=== PATIENT | male | born 1975 | race Caucasian/White ===

== ENCOUNTER → 2020-05-17 08:42 | Outpatient (CLI) | payer MEDICARE, SELFPAY ==
[2020-05-17 09:31] LABS: Add Manual Diff / Slide Review NO; Basophils Absolute Auto 0 /uL (0-100); Basophils Percent Auto 0.4 % (0-2); Eosinophils Absolute Auto 200 /uL (0-450); Eosinophils Percent Auto 2.7 % (2-4); Hematocrit 43.9 % (41-53); Hemoglobin 14.5 g/dL (13.5-17.5); Lymphocytes Absolute Auto 1200 /uL (1100-4500); Lymphocytes Percent Auto 19.8 % (25-40); Mean Corpuscular Hemoglobin 30.5 PG (26-34); Mean Corpuscular Volume 92.3 fL (80-100); Monocytes Absolute Auto 500 /uL (0-900); Neutrophils Absolute Auto 4300 /uL (1500-7000); Neutrophils Percent Auto 69.1 % (50-75); Platelet Count 167 X10^3/uL (150-400); Red Blood Cell Count 4.76 X10^6/uL (4.5-5.9); Red Cell Distribution Width 12.8 % (11.6-14.8); White Blood Cell Count 6.2 X10^3/uL (4.5-11.0)
[2020-05-17 09:57] LABS: Alanine Aminotransferase 59 IU/L (<50); Albumin 4.1 g/dL (3.5-5.0); Albumin Globulin Ratio 1.7 (1.0-2.8); Alkaline Phosphatase 103 U/L (38-126); Aspartate Aminotransferase 35 IU/L (17-59); BUN Creatinine Ratio 10.1 (6-22); Bilirubin Total 0.5 mg/dL (0.2-1.3); Blood Urea Nitrogen 10 mg/dL (9-20); Calcium 9.2 mg/dL (8.4-10.2); Carbon Dioxide 30 mmol/L (22-32); Chloride 105 mmol/L (98-107); Cholesterol 145 mg/dL (140-199); Estimated Glomerular Filt Rate > 60.0 mL/min (>60); Globulin 2.4 g/dL (1.7-4.1); Glucose 99 mg/dL (70-100); HDL Cholesterol 28 mg/dL (40-60); HEMOLYSIS < 15 (0-50); LDL Cholesterol Calculated 92 mg/dL (<100); Potassium 4.4 mmol/L (3.4-5.1); Sodium 139 mmol/L (137-145); Total Protein 6.5 g/dL (6.3-8.2); Triglycerides 127 mg/dL (35-150)
[2020-05-17 10:25] LABS: TSH w/ Reflex to FT4 1.56 uIU/mL (0.47-4.68)
== END ==
PROVIDERS: PCP Family Medicine; Referring Provider Family Medicine; Visit Provider Family Medicine
DX: E03.9 Hypothyroidism, unspecified (principal); E78.5 Hyperlipidemia, unspecified
CPT/HCPCS: 36415; 80053; 80061; 84443; 85025

== ENCOUNTER → 2020-12-19 09:26 | Outpatient (CLI) | payer MEDICARE, SELFPAY ==
[2020-12-19] MEDS: COVID-19 VACC, Ad26(JANSSEN)/PF 0.5 ML IM (09:32)
== END ==
PROVIDERS: PCP Family Medicine; Visit Provider Internal Medicine
DX: Z23 Encounter for immunization (principal)
CPT/HCPCS: 0031A; 91303

== ENCOUNTER → 2021-10-30 13:38 | Outpatient (CLI) | payer OTHER, SELFPAY ==
[2021-10-30 15:35] LABS: Thyroid Stimulating Hormone 2.12 uIU/mL (0.47-4.68)
== END ==
PROVIDERS: PCP Family Medicine; Referring Provider Family Medicine; Visit Provider Family Medicine
DX: E03.9 Hypothyroidism, unspecified (principal)
CPT/HCPCS: 36415; 84443

== ENCOUNTER → 2022-06-10 09:30 | Outpatient (CLI) | payer OTHER, SELFPAY ==
[2022-06-10 11:56] LABS: Add Manual Diff / Slide Review NO; Basophils Absolute Auto 0 /uL (0-100); Basophils Percent Auto 0.4 % (0-2); Eosinophils Absolute Auto 100 /uL (0-450); Hematocrit 43.2 % (41-53); Hemoglobin 14.5 g/dL (13.5-17.5); Lymphocytes Absolute Auto 1200 /uL (1100-4500); Lymphocytes Percent Auto 19.6 % (25-40); Mean Corpuscular HGB Conc 33.6 % (30-36); Mean Corpuscular Hemoglobin 30.7 PG (26-34); Mean Corpuscular Volume 91.6 fL (80-100); Monocytes Absolute Auto 500 /uL (0-900); Monocytes Percent Auto 8.5 % (3-14); Neutrophils Absolute Auto 4200 /uL (1500-7000); Neutrophils Percent Auto 69.5 % (50-75); Platelet Count 169 X10^3/uL (150-400); Red Blood Cell Count 4.72 X10^6/uL (4.5-5.9); Red Cell Distribution Width 12.8 % (11.6-14.8); White Blood Cell Count 6.1 X10^3/uL (4.5-11.0)
[2022-06-10 12:14] LABS: Alanine Aminotransferase 60 IU/L (<50); Albumin 4.1 g/dL (3.5-5.0); Albumin Globulin Ratio 1.8 (1.0-2.8); Alkaline Phosphatase 90 U/L (38-126); Aspartate Aminotransferase 33 IU/L (17-59); BUN Creatinine Ratio 9.5 (6-22); Bilirubin Total 0.5 mg/dL (0.2-1.3); Blood Urea Nitrogen 9 mg/dL (9-20); Carbon Dioxide 31 mmol/L (22-32); Chloride 105 mmol/L (98-107); Cholesterol 136 mg/dL (140-199); Estimated Glomerular Filt Rate > 60 mL/min (>60); Globulin 2.3 g/dL (1.7-4.1); Glucose 94 mg/dL (70-100); HDL Cholesterol 26 mg/dL (40-60); HEMOLYSIS < 15 (0-50); LDL Cholesterol Calculated 90 mg/dL (<100); Potassium 4.5 mmol/L (3.4-5.1); Sodium 142 mmol/L (137-145); Total Protein 6.4 g/dL (6.3-8.2); Triglycerides 98 mg/dL (35-150)
[2022-06-10 12:45] LABS: Thyroid Stimulating Hormone 1.33 uIU/mL (0.47-4.68)
== END ==
PROVIDERS: PCP Family Medicine; Referring Provider Family Medicine; Visit Provider Family Medicine
DX: E03.9 Hypothyroidism, unspecified (principal); E78.2 Mixed hyperlipidemia
CPT/HCPCS: 36415; 80053; 80061; 84443; 85025

== ENCOUNTER → 2022-10-05 09:17 | Outpatient (CLI) | payer OTHER, SELFPAY ==
[2022-10-05 10:56] LABS: COVID19 -Nasal RAPID Negative (Negative)
== END ==
PROVIDERS: PCP Family Medicine; Visit Provider Surgery
DX: Z20.822 Contact with and (suspected) exposure to COVID-19 (principal); Z01.812 Encounter for preprocedural laboratory examination
CPT/HCPCS: 87635; C9803

== ENCOUNTER 2022-10-06 09:55 | Day surgery (SDC) | payer OTHER, SELFPAY ==
--- NOTE | 2022-10-06 | PATH_ITS ---
[facility] Accession Number: [id number] No. of containers..02 Tissue . 01 Material submitted: . PART A: colon - TRANSVERSE COLON PART B: rectum - RECTAL POLYP . 01 Diagnosis: A. Transverse Colon, Biopsy: Tubular adenoma. . B. Rectum, Polyp, Biopsy: Benign fibroepithelial polyp (skin tag). VALDEMAR 10/09/2022 1051 Local . 01 Electronically signed: . Deena Lincoln MD, Pathologist NPI- [id number] . 01 Gross description: . Part A: TRANSVERSE COLON: Received in formalin are 2 fragment(s) of persaud, soft tissue measuring 0.2 x 0.1 x 0.1 cm to 0.2 x 0.1 x 0.1 cm submitted entirely in 1 cassette(s) Part B: RECTAL POLYP: Received in formalin is 1 fragment(s) of persaud, soft tissue measuring 0.6 x 0.5 x 0.3 cm which is bisected and submitted entirely in 1 cassette(s) /CPE 10/07/2022 0619 Local . 01 Pathologist provided ICD-10: D12.3 . 01 CPT . 207355, [id number] Specimen Comment: A courtesy copy of this report has been sent to [phone] Performed at: 01 [facility] [address] [place] [address], [place], [place] [id number] MD Akash Florez MD Phone: [phone]
[2022-10-06] MEDS: FLEETS ENEMA 1 EACH PR (10:39)
[2022-10-06 10:41] VITALS: BP 119/80; PULSE 66; RESP 24; TEMP 36.3; O2SAT 98
[2022-10-06 10:49] VITALS: BMI 34.9
[2022-10-06] MEDS: LACTATED RINGERS 1,000 ML 42 ML IV (11:01)
--- NOTE | 2022-10-06 12:04 | PM.HP.1 ---
History of Present Illness History of Present Illness Date Patient Seen: 10/06/22 Time Patient Seen: 12:04 Chief complaint: SDC Narrative: The patient presents for colorectal screening. They have never had any previous examination for such. No personal or family history of colon cancer. On further history denies any recent gastrointestinal symptoms. No nausea, vomiting, abdominal pain, loss of appetite, unexplained weight loss, change in bowel habits, or blood per rectum. Patient History Medical History Anxiety (~2004) Chronic back pain (~1995) Depression (~1979) Foot pain (~2013) Headache (~1992) Hyperlipidemia Hypothyroidism Migraines Musculoskeletal problem (~1995) Obesity (BMI 30-39.9) Panic disorder with agoraphobia (~2004) Post traumatic stress disorder (PTSD) Surgical History Anesthesia History of gastric bypass (~2000) History of myringotomy History of tonsillectomy Skin problem (~2002) Family & Social History Family History Father Hyperlipidemia Hypertension Brother Hyperlipidemia Grandfather Alzheimer's disease Grandmother Alzheimer's disease Social History: household members spouse Tobacco & Substance use: Tobacco type cigarettes,cigars Smoking Status Former smoker alcohol intake former Substance Use Type does not use Meds Home Medications and Allergies Home Medications Medication Instructions Recorded Confirmed Type citalopram 40 mg tablet 80 mg PO DAILY 04/24/19 10/06/22 History clonazepam 1 mg tablet 1 mg PO QID 04/24/19 10/06/22 History propranolol 40 mg tablet 40 mg PO TID 04/24/19 10/06/22 History aripiprazole 2 mg tablet 1 mg PO DAILY 06/17/20 10/06/22 History levothyroxine 150 mcg tablet 150 mcg PO DAILY #90 tabs 11/04/21 10/06/22 Rx atorvastatin 20 mg tablet 20 mg PO BEDTIME #90 tabs 07/17/22 10/06/22 Rx bupropion HCl 200 mg tablet,12 hr 200 mg PO BID 10/06/22 10/06/22 History sustained-release buspirone 10 mg tablet 20 mg TID 10/06/22 10/06/22 History Allergies Allergy/AdvReac Type Severity Reaction Status Date / Time Penicillins Allergy Unknown Childhood Verified 10/06/22 10:31 reaction unknown Exam Vital Signs (past 8 hours): - 10/06/22 10:41 Temperature 97.3 F L Pulse Rate 66 Respiratory Rate 24 Blood Pressure 119/80 Pulse Oximetry 98 Oxygen Delivery Method Room Air Oxygen Delivery Method Room Air Narrative Exam Narrative: General adult man alert oriented no acute distress Assessment & Plan Assessment & Plan narrative: The patient requires colorectal screening and colonoscopy is recommended. Technical details were discussed. Risks, benefits, alternatives explained. Risks including but not limited to myocardial infarction, aspiration, bleeding, pain, missed lesion, incomplete examination, need for further radiographic studies, colonic perforation, and need for major abdominal surgery were discussed. All questions were answered to their satisfaction, and they are in agreement with this plan. Time Spent With Patient Critical Care time: I spent a total of [] minutes of critical care time on this patient's care today; this time is exclusive of procedural time.
--- NOTE | 2022-10-06 12:05 | PM.OP.COLON ---
Operative Date/Time/Diagnoses Date of procedure: 10/06/22 Time of procedure: 12:05 Pre-op diagnosis: Colorectal screening Post-op diagnosis: same Procedure & Clinicians Study performed: Colonoscopy Same procedure as scheduled: Yes Indications: Colorectal screening Surgeon: Jamel Yung Procedure Notes Procedure in detail: The history and physical was performed/updated and the patient is ASA class is 2. The procedure was discussed in detail with the patient. Potential risks complications including infection, bleeding, missed diagnosis, perforation, need for surgery, and were explained. Their questions were answered and informed consent was obtained. Patient was brought to the procedure room and placed standard monitoring equipment. The patient's vital signs were monitored continuously throughout the entire procedure. Prior to starting time-out was performed. The patient was placed in the left lateral recumbent position. Procedural sedation was administered by anesthesia. Examination began with a thorough inspection of the perianal area there was no evidence of fissures, fistulae, external hemorrhoids or cutaneous malignancy. The colonoscopy scope was then placed into the anal canal and was advanced to the cecum, which was identified by the ileocecal valve, the appendiceal orifice and the confluence of the taenia. The scope was then slowly withdrawn examining colon thoroughly in all directions, irrigating it of any residual stool. FINDINGS 1. Transverse colon polyp 3 mm removed with biopsy forceps 2. Distal rectal polyp 5 mm removed with hot snare The patient tolerated the procedure well. They will be discharged once criteria are met. The prep was of good/excellent quality. The withdrawl time was 8 minutes. Specimen(s): other (Rectal polyp, transverse colonic polyp) Post-procedure Recommendations: High fiber diet Plan for aftercare: Follow-up is dependent on pathology findings Disposition: same day surgery
--- NOTE | 2022-10-06 12:31 | SUR.PHASEII ---
Called Dr Colin to clarify prescription for Ericka from [facility]. Tramadol 1-2 tabs every 8 hours as needed for pain.
[2022-10-06 12:36] VITALS: PULSE 64; RESP 11; TEMP 36.1; O2SAT 97
[2022-10-06 12:41] VITALS: BP 102/74; PULSE 72; RESP 18; TEMP 36.8; O2SAT 97
[2022-10-06 12:46] VITALS: BP 110/79; PULSE 64; RESP 15; TEMP 36.7; O2SAT 99
[2022-10-06 12:49] VITALS: BP 109/74; PULSE 64; RESP 16; TEMP 36.7; O2SAT 99
== END 2022-10-06 13:05 | disposition home or self-care (01) ==
PROVIDERS: PCP Family Medicine; Referring Provider Surgery; Visit Provider Surgery
PROC: 0DJD8ZZ Inspection of Lower Intestinal Tract, Via Natural or Artificial Opening Endoscopic (ICD-10-PCS; CPT 45378; principal; 2022-10-06 11:15)
DX: Z12.11 Encounter for screening for malignant neoplasm of colon (principal); D12.3 Benign neoplasm of transverse colon; K64.4 Residual hemorrhoidal skin tags
CPT/HCPCS: 45385; 45380; J2704

== ENCOUNTER → 2023-01-28 09:29 | Outpatient (CLI) | payer OTHER, SELFPAY ==
[2023-01-28 11:14] LABS: Semen Sperm Prescence Post-Vas Present (ABSENT)
== END ==
PROVIDERS: PCP Family Medicine; Referring Provider Family Medicine; Visit Provider Family Medicine
DX: Z30.2 Encounter for sterilization (principal)
CPT/HCPCS: 89321

== ENCOUNTER → 2023-03-05 10:01 | Outpatient (CLI) | payer OTHER, SELFPAY ==
[2023-03-05 14:06] LABS: Semen Sperm Prescence Post-Vas Absent (ABSENT)
== END ==
PROVIDERS: PCP Family Medicine; Referring Provider Family Medicine; Visit Provider Family Medicine
DX: Z30.2 Encounter for sterilization (principal)
CPT/HCPCS: 89321

== ENCOUNTER → 2023-07-22 08:54 | Outpatient (CLI) | payer OTHER, SELFPAY ==
[2023-07-22 09:58] LABS: Add Manual Diff / Slide Review NO; Basophils Absolute Auto 0 /uL (0-100); Basophils Percent Auto 0.4 % (0-2); Eosinophils Absolute Auto 100 /uL (0-450); Eosinophils Percent Auto 2.7 % (2-4); Hematocrit 41.4 % (41-53); Hemoglobin 14.1 g/dL (13.5-17.5); Lymphocytes Absolute Auto 1200 /uL (1100-4500); Lymphocytes Percent Auto 23.2 % (25-40); Mean Corpuscular HGB Conc 34.1 % (30-36); Mean Corpuscular Hemoglobin 30.5 PG (26-34); Mean Corpuscular Volume 89.3 fL (80-100); Monocytes Absolute Auto 400 /uL (0-900); Monocytes Percent Auto 7.4 % (3-14); Neutrophils Absolute Auto 3400 /uL (1500-7000); Neutrophils Percent Auto 66.3 % (50-75); Platelet Count 190 X10^3/uL (150-400); Red Blood Cell Count 4.63 X10^6/uL (4.5-5.9); Red Cell Distribution Width 12.8 % (11.6-14.8); White Blood Cell Count 5.2 X10^3/uL (4.5-11.0)
[2023-07-22 10:08] LABS: Alanine Aminotransferase 45 IU/L (<50); Albumin 3.8 g/dL (3.5-5.0); Albumin Globulin Ratio 1.4 (1.0-2.8); Alkaline Phosphatase 101 U/L (38-126); Aspartate Aminotransferase 30 IU/L (17-59); BUN Creatinine Ratio 9.2 (6-22); Bilirubin Total 0.6 mg/dL (0.2-1.3); Blood Urea Nitrogen 9 mg/dL (9-20); Calcium 8.6 mg/dL (8.4-10.2); Carbon Dioxide 27 mmol/L (22-32); Chloride 105 mmol/L (98-107); Cholesterol 126 mg/dL (140-199); Estimated Glomerular Filt Rate > 60 mL/min (>60); Globulin 2.7 g/dL (1.7-4.1); Glucose 98 mg/dL (70-100); HDL Cholesterol 23 mg/dL (40-60); HEMOLYSIS < 15 (0-50); LDL Cholesterol Calculated 86 mg/dL (<100); Potassium 4.1 mmol/L (3.4-5.1); Sodium 140 mmol/L (137-145); Total Protein 6.5 g/dL (6.3-8.2); Triglycerides 86 mg/dL (35-150)
[2023-07-22 11:02] LABS: TSH w/ Reflex to FT4 1.95 uIU/mL (0.47-4.68)
[2023-07-22 17:24] LABS: HIV 1 & 2 Ab/Ag 4th Gen Combo NEGATIVE (NEGATIVE); Hep C Virus Ab w/Reflex Quant NEGATIVE s/c (NEGATIVE)
== END ==
PROVIDERS: PCP Family Medicine; Referring Provider Family Medicine; Visit Provider Family Medicine
DX: Z00.00 Encounter for general adult medical examination without abnormal findings (principal); E78.2 Mixed hyperlipidemia; E03.9 Hypothyroidism, unspecified; E66.9 Obesity, unspecified; Z13.1 Encounter for screening for diabetes mellitus; Z11.4 Encounter for screening for human immunodeficiency virus [HIV]; Z11.59 Encounter for screening for other viral diseases
CPT/HCPCS: 36415; 80053; 80061; 83036; 84443; 85025; 86803; 87389

== ENCOUNTER → 2023-09-15 16:11 | Outpatient (CLI) | payer OTHER, SELFPAY ==
[2023-09-15 16:54] LABS: Influenza A - CEPHEID Flu A NEGATIVE (NEGATIVE); Influenza B - CEPHEID Flu B NEGATIVE (NEGATIVE); Respiratory Syncytial Virus POSITIVE (Negative)
[2023-09-15 16:55] LABS: COVID-19 CEPHEID 4-PLEX PCR Negative (Negative)
== END ==
LOC: LAB 16:11
PROVIDERS: PCP Family Medicine; Visit Provider Nurse Practitioner Family
DX: R05.1 Acute cough (principal)
CPT/HCPCS: 0241U

== ENCOUNTER → 2023-09-15 16:33 | Outpatient (CLI) | payer OTHER, SELFPAY ==
--- NOTE | 2023-09-15 16:36 | DI.RAD.S_ITS ---
PROCEDURE: XR CHEST 2V INDICATIONS: Cough TECHNIQUE: 2 views of the chest were acquired. COMPARISON: None. FINDINGS: Surgical changes and devices: None. Lungs and pleura: Moderate right infrahilar opacity, confirmed on lateral view. Prominent soft tissue density versus artifact anterior to the distal trachea on lateral view.. No pleural effusions. Low lung volumes. Mediastinum: Normal heart size Bones and chest wall: Unremarkable. IMPRESSION: Moderate right infrahilar opacity is probably infectious/inflammatory. There is a prominent density seen anterior to the trachea on lateral view, which may represent pulmonary arterial structures. Consider future imaging surveillance to assess for resolution. Low lung volumes. Dictated by: Paul Lane M.D. on 09/15/2023 at 17:29 Approved by: Paul Lane M.D. on 09/15/2023 at 17:31
== END ==
PROVIDERS: PCP Family Medicine; Referring Provider Physician Assistant; Visit Provider Physician Assistant
DX: R05.1 Acute cough (principal)
CPT/HCPCS: 0241U; 71046

== ENCOUNTER → 2024-08-25 11:05 | Outpatient (CLI) | payer OTHER, SELFPAY ==
[2024-08-25 11:30] LABS: Hematocrit 42.4 % (41-53); Mean Corpuscular Hemoglobin 30.6 PG (26-34); Mean Corpuscular Volume 92.9 fL (80-100); Platelet Count 203 X10^3/uL (150-400); Red Blood Cell Count 4.56 X10^6/uL (4.5-5.9); Red Cell Distribution Width 13.9 % (11.6-14.8); White Blood Cell Count 5.3 X10^3/uL (4.5-11.0)
[2024-08-25 11:44] LABS: Hemoglobin A1C% w Est Avg Glu 5.4 % (4.0-6.0)
[2024-08-25 12:00] LABS: Alanine Aminotransferase 39 IU/L (<50); Albumin 3.9 g/dL (3.5-5.0); Albumin Globulin Ratio 1.6 (1.0-2.8); Alkaline Phosphatase 99 U/L (38-126); Aspartate Aminotransferase 33 IU/L (17-59); BUN Creatinine Ratio 7.3 (6-22); Bilirubin Total 0.7 mg/dL (0.2-1.3); Blood Urea Nitrogen 8 mg/dL (9-20); Calcium 9.3 mg/dL (8.4-10.2); Carbon Dioxide 30 mmol/L (22-32); Chloride 104 mmol/L (98-107); Cholesterol 152 mg/dL (140-199); Estimated Glomerular Filt Rate > 60 mL/min (>60); Globulin 2.4 g/dL (1.7-4.1); Glucose 102 mg/dL (70-100); HDL Cholesterol 36 mg/dL (40-60); HEMOLYSIS < 15 (0-50); LDL Cholesterol Calculated 94 mg/dL (<100); Potassium 4.7 mmol/L (3.4-5.1); Sodium 137 mmol/L (137-145); Total Protein 6.3 g/dL (6.3-8.2); Triglycerides 112 mg/dL (35-150)
[2024-08-25 12:28] LABS: Thyroid Stimulating Hormone 2.94 uIU/mL (0.47-4.68)
== END ==
PROVIDERS: PCP Family Medicine; Referring Provider Family Medicine; Visit Provider Family Medicine
DX: E78.5 Hyperlipidemia, unspecified (principal); R73.09 Other abnormal glucose; E03.9 Hypothyroidism, unspecified; E66.9 Obesity, unspecified
CPT/HCPCS: 36415; 80053; 80061; 83036; 84436; 84443; 85027

== ENCOUNTER → 2024-11-09 09:29 | Outpatient (CLI) | payer OTHER, SELFPAY ==
[2024-11-09 10:26] LABS: COVID-19 CEPHEID 4-PLEX PCR Negative (Negative); Influenza A - CEPHEID Flu A NEGATIVE (NEGATIVE); Influenza B - CEPHEID Flu B NEGATIVE (NEGATIVE); Respiratory Syncytial Virus Negative (Negative)
== END ==
PROVIDERS: PCP Family Medicine; Visit Provider Physician Assistant
DX: R05.1 Acute cough (principal)
CPT/HCPCS: 0241U

== ENCOUNTER → 2024-11-09 10:01 | Outpatient (CLI) | payer OTHER, SELFPAY ==
--- NOTE | 2024-11-09 10:02 | DI.RAD.S_ITS ---
PROCEDURE: XR CHEST 2V INDICATIONS: cough/fevers x 6 days, Oxygen 93% no hx asthma TECHNIQUE: 2 views of the chest were acquired. COMPARISON: [facility], CR, XR CHEST 2V, 09/15/2023, 16:35. FINDINGS: Surgical changes and devices: None. Lungs and pleura: Lungs are clear. No pleural effusions or pneumothorax. Mediastinum: Mediastinal contours are normal. Heart size is normal. Bones and chest wall: No suspicious bony abnormalities. Soft tissues appear unremarkable. IMPRESSION: Mildly reduced inspiratory volume, no pneumonia seen. Dictated by: Kaleb Kirk M.D. on 11/09/2024 at 11:57 Approved by: Kaleb Kirk M.D. on 11/09/2024 at 11:58
== END ==
PROVIDERS: PCP Family Medicine; Referring Provider Physician Assistant; Visit Provider Physician Assistant
DX: J06.9 Acute upper respiratory infection, unspecified (principal); R05.1 Acute cough
CPT/HCPCS: 0241U; 71046